=== PATIENT | female | born 1990 ===

== ENCOUNTER 2019-05-09 10:22 | Outpatient (RCR) | payer OTHER, SELFPAY ==
[2019-05-06 11:07] VITALS: BP 115/71; PULSE 91
--- NOTE | ~2019-05-09 | US_ITS ---
EXAMINATION: US OB limited w BPP DATE: 05/06/2019 11:23 INDICATION: Third trimester, post dates TECHNIQUE: Real-time pelvic ultrasound was performed. The interpreting radiologist was not present fo r the study. COMPARISON: None. FINDINGS: There is a single living fetus in vertex presentation. The placenta is posterior. heart rate is 159 beats per minute (bpm). The amniotic fluid index is 15.2 cm which is normal Biophysical profile performed by the technologist: breathing (30 sec sustained breathing in 30 minutes): 2 out of 2 movement (3 gross body movements in 30 minutes): 2 out of 2 tone (one episode of rdigdds-[id number]-[id number] limb movement): 2 out of 2 Amniotic fluid pocket (2 cm): 2 out of 2 Total score: 8 out of 8 IMPRESSION: 1. Single living fetus in vertex presentation. 2. Biophysical profile 8 out of 8. 3. Normal amniotic fluid index. Reviewed, dictated and finalized at location [facility]
[2019-05-09 10:51] VITALS: BP 99/63; PULSE 85
--- NOTE | 2019-05-10 12:35 | HP_ITS ---
DATE OF SERVICE: 05/09/2019 CHIEF COMPLAINT: Leaking fluid. HISTORY OF PRESENT ILLNESS: A 28-year-old, G1, P0, at 40 weeks and 3 days gestation, presented to Labor and Delivery triage with complaints of leaking of fluid. Spontaneous rupture of membranes was confirmed on exam and triage. The patient denies any contractions, headaches, blurred vision, spots in her vision, chest pain, shortness of breath, abdominal pain, nausea, vomiting, diarrhea, constipation, or dysuria. PAST MEDICAL HISTORY: None. PAST SURGICAL HISTORY: None. SOCIAL HISTORY: Denies tobacco, alcohol, or drug use. FAMILY HISTORY: Father and grandmother with hypertension. OBSTETRICAL HISTORY: G1, P0. MEDICATIONS: vitamins. ALLERGIES: NO KNOWN DRUG ALLERGIES. REVIEW OF SYSTEMS: Pertinent 10-point review of systems completed. Pertinent negatives and positives as per the HPI. PHYSICAL EXAMINATION: GENERAL: No acute distress. Alert and oriented x3. PSYCHIATRIC: Appropriate mood and affect. RESPIRATORY: Nonlabored breathing. CARDIOVASCULAR: Regular rate. ABDOMEN: Soft, nontender. REVIEW OF INVESTIGATIONS: GS negative. WBC 8.6, hemoglobin 11.5, hematocrit 33.5, and platelet 175. ASSESSMENT: 1. A 40-week term gestation. 2. Premature rupture of membranes. PLAN: Admit to Labor and Delivery, observe for spontaneous labor. Otherwise, augment labor with Pitocin. Pain management as requested. D I MT: Bárbara
== END 2019-05-18 07:47 | disposition home or self-care (01) ==
LOC: ANHOBOP 10:22
PROVIDERS: Visit Provider Obstetrics & Gynecology
DX: O48.0 Post-term pregnancy (principal); Z3A.40 40 weeks gestation of pregnancy
CPT/HCPCS: 59025; 76815; 76819

== ENCOUNTER 2019-05-09 15:58 | Inpatient (IN) | payer OTHER, SELFPAY ==
[2019-05-09] VITALS (70 sets, daily range): BP systolic 92–136; BP diastolic 51–81; PULSE 77–116; RESP 18–20; TEMP 36.6–36.8; O2SAT 92–100
--- NOTE | 2019-05-09 16:47 | LDADM ---
This patient, Nell Sharma, was admitted to Labor/Delivery/Recovery 108 on 05/09/19 at 15:58. Plans for labor, pain management and were discussed with patient. Patient/family oriented to hospital policies and general routines including ID bracelet, bed and alarms, visiting hours, pain management, procedures, bathroom and other care routines, personal items, smoking policy, room service/diet and guest tray routines, security routines, and visiting hours. Patient/Family are encouraged to report perceived risks to care and to ask questions if they do not understand what they are told or what they should do. See OBIX for further documentation.
[2019-05-09 16:53] LABS: Basophils Percent Auto 0.2 % (0.2-1.2); Eosinophils Absolute Auto 0.1 K/mm3 (0-0.3); Eosinophils Percent Auto 0.7 % (0-4.4); Hematocrit 33.5 % (37.0-47.0); Hemoglobin 11.5 g/dL (12.0-15.0); Immature Granulocyte Absolute 0.04 K/mm3 (0.00-0.031); Immature Granulocyte Percent A 0.5 % (0-0.5); Lymphocytes Absolute Auto 2.35 K/mm3 (0.9-3.2); Lymphocytes Percent Auto 27.3 % (18.3-44.2); Mean Corpuscular HGB Conc 34.3 g/dl (32-36); Mean Corpuscular Hemoglobin 30.3 pg (26-34); Mean Corpuscular Volume 88.4 fl (80-100); Mean Platelet Volume 11.6 fl (7.4-10.4); Monocytes Absolute Auto 0.6 K/mm3 (0.1-0.6); Monocytes Percent Auto 6.9 % (2.6-8.5); Neutrophils Absolute Auto 5.6 K/mm3 (1.3-6.7); Neutrophils Percent Auto 64.4 % (45.5-73.1); Platelet Count Result 175 k/mm3 (150-375); Red Blood Count 3.79 M/mm3 (4.2-5.4); Red Cell Distribution Width 13.9 % (11.5-14.5); White Blood Count 8.6 K/mm3 (4.5-10.0)
[2019-05-09] MEDS: LACTATED RINGERS 1,000 ML 125 ML IV CONT ×2 (20:07→20:58)
--- NOTE | 2019-05-09 20:39 | WPDANESEPPF ---
Anes - Initial Pre Proc Eval Procedure: Labor epidural Date/Time: 05/09/19 20:39 Surgeon: Aditya Baugh MD Pre Op Diagnosis: Abd painn with contractions Pre Op Diagnosis: leaking Patient Data Age: 28 Gender: F Height: 5 ft 5 in Weight: 82 kg Last Vital Signs Temp 98 F 05/09/19 20:09 Pulse 85 05/09/19 20:26 Resp 18 05/09/19 20:09 BP 118/80 05/09/19 20:26 Allergies Allergy/AdvReac Type Severity Reaction Status Date / Time No Known Allergies Allergy Verified 04/20/19 15:27 Home Medications Medication Instructions Recorded Confirmed Type PNV cmb#95-ferrous fumarate-FA 1 tablet PO DAILY 04/20/19 05/09/19 History [] Laboratory Tests 05/09/19 05/09/19 05/09/19 16:42 16:42 16:43 WBC 8.6 K/mm3 K/mm3 (4.5-10.0) RBC 3.79 M/mm3 L M/mm3 (4.2-5.4) Hgb 11.5 g/dL L g/dL (12.0-15.0) Hct 33.5 % L % (37.0-47.0) MCV 88.4 fl fl (80-100) MCH 30.3 pg pg (26-34) MCHC 34.3 g/dl g/dl (32-36) RDW 13.9 % % (11.5-14.5) Plt Count 175 k/mm3 k/mm3 (150-375) MPV 11.6 fl H fl (7.4-10.4) Immature Gran % (Auto) 0.5 % % (0-0.5) Neut % (Auto) 64.4 % % (45.5-73.1) Lymph % (Auto) 27.3 % % (18.3-44.2) [place] % (Auto) 6.9 % % (2.6-8.5) Eos % (Auto) 0.7 % % (0-4.4) Baso % (Auto) 0.2 % % (0.2-1.2) Lymph # (Auto) 2.35 K/mm3 K/mm3 (0.9-3.2) [place] # (Auto) 0.6 K/mm3 K/mm3 (0.1-0.6) Eos # (Auto) 0.1 K/mm3 K/mm3 (0-0.3) Baso # (Auto) 0.0 K/mm3 K/mm3 (0.0-0.1) Abs Immat Gran (auto) 0.04 K/mm3 H K/mm3 (0.00-0.031) Absolute Neuts (auto) 5.6 K/mm3 K/mm3 (1.3-6.7) Absolute Nucleated RBC 0.0 K/mm3 K/mm3 (0.0-0.012) Nucleated RBC % 0.0 % % (0.0-0.2) RPR Pending Blood Type O Positive Antibody Screen Negative Patient hx anesthesia problems: none Family hx anesthesia problems: none [facility] Family History Family History Other Unknown family medical history Social History Social History Smoking status: Never smoker Substance use: never Spiritual care concerns: No Anes - Eval Final PreProcedure Day of Procedure 05/09/19 20:39 Patient weight: overweight Airway: Mallampati scale class II Neurological: alert and oriented ASA classification: II Emergent: no Anesthetic plan: proceed Anesthesia type and monitoring: standard monitoring Informed Consent: The patient's anesthetic plan and its attendant risks and benefits were discussed with the patient/family/POA. Questions were solicited and answers provided to the satisfaction of the patient/family/POA.
[2019-05-10] VITALS (135 sets, daily range): BP systolic 104–131; BP diastolic 47–101; PULSE 87–155; RESP 18; TEMP 36.4–37.2; O2SAT 97–100
[2019-05-10] MEDS: LACTATED RINGERS 1,000 ML 125 ML IV CONT (00:02)
[2019-05-10] MEDS: SODIUM CHLORIDE 0.9% IV 300 ML 600 ML I-UTERINE (02:35)
[2019-05-10] MEDS: SODIUM CHLORIDE 0.9% IV 1,000 ML 150 ML I-UTERINE (03:05)
[2019-05-10] MEDS: WITCH HAZEL 40 PADS 1 PAD TOPICAL (08:06)
[2019-05-10] MEDS: BENZOCAINE 20% AER SPR (*SP) 56 GM CAN 1 SPRAY TOPICAL (08:06)
[2019-05-10] MEDS: IBUPROFEN 600 MG TABLET PO ×2 (10:12→17:43)
--- NOTE | 2019-05-10 12:44 | OP_ITS ---
DATE OF PROCEDURE: 05/10/2019 PROCEDURE: Normal spontaneous vaginal delivery. PREDELIVERY DIAGNOSES: 1. 40-week term gestation. 2. Premature rupture of membranes. 3. Meconium-stained fluid. POSTDELIVERY DIAGNOSES: 1. #40-week term gestation. 2. Premature rupture of membranes. 3. Meconium-stained amniotic fluid. 4. Normal spontaneous vaginal delivery. ANESTHESIA: Epidural. ESTIMATED BLOOD LOSS: 500 mL. FINDINGS: Single live female born on May 10, 2021 at 07:23. Weight 7 pounds 10 ounces, 8 and 9. Lacerations, first-degree perineal laceration repaired with 2-0 Vicryl. COMPLICATIONS: None apparent. BRIEF HISTORY: A 28-year-old G1 at 40 weeks and 3 days gestation initially presented to Labor and Delivery with leaking of fluid, which was confirmed in triage. The patient was admitted for induction and augmentation of labor secondary to premature rupture of membranes. DESCRIPTION OF PROCEDURE: Once the patient was complete and ready for delivery. Delivery bed was broken down and the patient's legs were placed in stirrups for support with maternal efforts with her contractions. The presented in OA position. Head was delivered. Meconium-stained fluid noted. Gentle downward traction was applied. Anterior shoulder delivered without any issues followed by the posterior shoulder and followed by the rest of the body. The was vigorous and crying. Delayed cord clamping of 1 minute was performed. IV oxytocin was administered. Fundal massage was applied. Initially, bleeding was noted to be brisk, however with fundal massage the uterus firmed up and the bleeding started to slow down. At this point, an exam was performed to identify any lacerations. A first-degree perineal laceration was noted. This was repaired using 2-0 Vicryl. At this point, the bleeding had slowed down and thus concluded the procedure. The patient tolerated the procedure well and is resting in the labor room. D I MT: Bárbara
--- NOTE | 2019-05-10 13:02 | PC.NURSE ---
Patient transferred to post room # 291 via wheelchair. Support person present. Oriented to unit, room, information board, rooming in, admission packet and security measures. Patient verbalizes understanding.
--- NOTE | 2019-05-10 15:30 | PC.NURSE ---
PT went down to level 2 nursery via wheelchair to breast feed .
[2019-05-10] MEDS: DOCUSATE SODIUM 100 MG CAPSULE PO (17:43)
[2019-05-11 05:38] LABS: Hematocrit 22.7 % (37.0-47.0); Hemoglobin 7.7 g/dL (12.0-15.0)
[2019-05-11 08:00] VITALS: BP 90/55; PULSE 107; RESP 18; TEMP 36.6; O2SAT 100
[2019-05-11] MEDS: BENZOCAINE 20% AER SPR (*SP) 56 GM CAN 1 SPRAY TOPICAL (08:38)
[2019-05-11] MEDS: POLYSACCHARIDE IRON COMPLEX 150 MG CAPSULE PO ×2 (08:38→17:24)
[2019-05-11] MEDS: MULTIVIT/MIN/PREN/FOL AC/IRON TABLET 1 TAB PO (08:38)
[2019-05-11] MEDS: WITCH HAZEL 40 PADS 1 PAD TOPICAL (08:38)
[2019-05-11] MEDS: IBUPROFEN 600 MG TABLET PO ×2 (08:39→17:24)
[2019-05-11] MEDS: DOCUSATE SODIUM 100 MG CAPSULE PO ×2 (08:40→17:24)
[2019-05-11 10:13] LABS: Rapid Plasma Reagin Non-Reactive (NonReactive)
--- NOTE | 2019-05-11 12:17 | PM.OBPNVD ---
OB - PN: Subj Subjective Date/time seen: 05/11/19 12:17 Interval history: 28yo s/p on 05/10. Patient comments: no complaints and pain well controlled baby status: doing well Narrative: Doing well today, feels much better than yesterday. Feeling sore, cramping. Motrin helpes. Bleeding has decreased today. Some lightheadedness when getting up. OB - PN: Obj Data Labs CBC & Chem 7: 05/11/19 05:14 Labs: Laboratory Results - last 24 hr 05/09/19 05/11/19 16:42 05:14 Hgb 7.7 L D Hct 22.7 L RPR Non-reactive OB - PN A/P Assessment and Plan (1) (normal spontaneous vaginal delivery): Code(s): O80 - Encounter for full-term uncomplicated delivery Status: Acute Assessment and Plan: Routine care Ambulate Pain management Plan for DC home on 05/12 as long an H/H is stable (2) Acute blood loss anemia: Code(s): D62 - Acute posthemorrhagic anemia Status: Acute Assessment and Plan: EBL 500mls at delivery Hb 7.7 postdelivery Repeat H/H on 05/12 Continue iron Discussed blood transfusion if indicated Time Spent With Patient Time: Total time spent is greater than 50% in coordination of care (as documented) at patient's floor/unit and/or counseling patient: Exam Const: General: comfortable and no acute distress Resp: Effort & Inspection: normal respiratory effort Cardio: Rate: regular rate GI: Other: soft, nontender, nondistended, fundus firm Psych: Appearance: grossly normal
--- NOTE | 2019-05-11 15:15 | PC.NURSE ---
Mother called out for assist with feeding, reporting continues to cry and root after feeding. Mother states was at breast 5 minutes. Suggested mother return to breast. Reviewed infant feeding cues, frequencies, duration of feedings, feeding elimination flow sheet, and signs of adequate intake. Demonstrated stimulation techniques to wake for feeding. Assisted with infant to breast. Reviewed positioning/alignment in cross cradle, holding breast in U hold and guided asymmetrical latch on. was able to latch correctly. Infant nursed eagerly, with steady draws and frequent swallowing noted. Reviewed signs of a correct latch, effective nursing and suck swallow ratio. was able to maintain latch without discomfort to mother. Nipple care reviewed. Advised parents to stimulate to keep infant awake and feeding effectively for increased intake. Instructed mother to call out for RN assistance if she is unable to latch for feeding or she has discomfort with nursing. Instructed feeding should be initiated three hours from start of last feeding or if feeding cues are noted before. Mother voiced understanding of information shared.
[2019-05-11 20:55] VITALS: BP 91/51; PULSE 98; RESP 16; TEMP 36.8
[2019-05-12 06:14] LABS: Hematocrit 22.7 % (37.0-47.0); Hemoglobin 7.4 g/dL (12.0-15.0)
[2019-05-12 07:55] VITALS: BP 114/65; PULSE 82; RESP 16; TEMP 37; O2SAT 100
[2019-05-12] MEDS: IBUPROFEN 600 MG TABLET PO (07:58)
[2019-05-12] MEDS: DOCUSATE SODIUM 100 MG CAPSULE PO (07:58)
[2019-05-12] MEDS: MULTIVIT/MIN/PREN/FOL AC/IRON TABLET 1 TAB PO (07:58)
[2019-05-12] MEDS: MEASLES,MUMPS,RUBELLA VACCINE 0.5 ML VIAL (07:58)
[2019-05-12] MEDS: POLYSACCHARIDE IRON COMPLEX 150 MG CAPSULE PO (07:58)
--- NOTE | 2019-05-12 08:03 | PM.OBDSVD ---
DS: Diagnosis Admitting Diagnosis Admitting Diagnosis: Encounter for full-term uncomplicated delivery Discharge Diagnosis (1) (normal spontaneous vaginal delivery): Code(s): O80 - Encounter for full-term uncomplicated delivery Status: Acute Assessment and Plan: follow up in 4 weeks for visit (2) Acute blood loss anemia: Code(s): D62 - Acute posthemorrhagic anemia Status: Acute Assessment and Plan: Hb stable, iron BID OB - DS: Summary Hospital Course Hospital Course: Patient admitted for premature rupture of membranes, labor was induced. with EBL 500mls. Acute blood loss anemia, Hb stabilized >7.0. Otherwise course uncomplicated. OB Procedures : None OB Procedures Intrapartum: Spontaneous Vag Delivery OB Procedures: : None Peripartum Data Infant Delivery Method: Natural Vaginal Laceration description: Periurethral - 1st Degree complications: none Time Spent with Patient Time attestation: Total time spent providing and/or coordinating discharge services: DS: Data Data Completed and Pending Pending studies at discharge: Pending at discharge 05/10/19 08:47 Surgical [PTH] Routine Labs on day of discharge: Labs from last 24 hours 05/12/19 05/09/19 04:48 16:42 Hgb 7.4 L Hct 22.7 L RPR Non-reactive Discharge Plan Discharge Attending physician on discharge: Pino Sidhu Discharging Clinician: Pino Sidhu Patient Disposition: Home, Self-Care Activity: may shower Diet: regular Patient Instructions: Antibiotic Form Stand Alone Forms: General Discharge Information Follow-up/Referrals: Pino Sidhu DO [Physician] - Discharge Medications: New polysaccharide iron complex 150 mg iron Capsule 150 mg PO BIDWM Qty: 90 RF: 0 docusate sodium 100 mg Capsule 100 mg PO BID PRN (Reason: Constipation) Qty: 60 RF: 0 ibuprofen 600 mg Tablet 600 mg PO Q6H PRN (Reason: Cramping) Qty: 90 RF: 0 No Action PNV cmb#95-ferrous fumarate-FA [] 28 mg iron- 800 mcg Tablet 1 tablet PO DAILY RF: 0 Date of admission: 05/09/19 15:58 Primary Care Provider: UNKNOWN,DOCTOR Admitting Provider: Aditya Baugh Attending physician on admission: Aditya Baugh
[2019-05-14 10:42] VITALS: BP 123/71; PULSE 91; RESP 18; TEMP 36.6
--- NOTE | 2019-05-28 11:57 | WPDHPUPDATE1 ---
History and Physical Update Update Date/Time: 05/28/19 11:57 H&P entered under previous Acct# History and Physical has been reviewed, including an updated exam of the patient. There are NO changes in the patient's condition. Risks, benefits, and alternatives have been discussed and questions answered. Patient agrees to proceed with procedure.
== END 2019-05-12 13:44 | disposition home or self-care (01) | DRG 806 ==
LOC: ANHLDR 18:08 → ANHOB2 05-12 08:08 → ANHLDR 05-13 08:18 → ANHOB2 05-13 08:18
PROVIDERS: Admitting Provider Obstetrics & Gynecology; Visit Provider Obstetrics & Gynecology
DX: O42.92 Full-term premature rupture of membranes, unspecified as to length of time between rupture and onset of labor (principal); D62 Acute posthemorrhagic anemia; Z37.0 Single live birth; Z3A.40 40 weeks gestation of pregnancy; O36.8330 Maternal care for abnormalities of the fetal heart rate or rhythm, third trimester, not applicable or unspecified; O70.0 First degree perineal laceration during delivery; O77.0 Labor and delivery complicated by meconium in amniotic fluid; O90.81 Anemia of the puerperium
CPT/HCPCS: 36415; 84112; 85014; 85018; 85025; 86592; 86850; 86900; 86901; 88307; 90710; A9270; J2590; J7030; J7120